=== PATIENT | female | born 1955 | race Caucasian/White ===

== ENCOUNTER 2018-03-23 12:16 | Emergency (ER) | payer BC ==
[2018-03-23 13:13] VITALS: BP 133/75
--- NOTE | 2018-03-23 13:19 | EDM.PDOC ---
ED HPI GENERAL MEDICAL PROBLEM - General Chief Complaint: ENT Problem Stated Complaint: [id number] EAR INFECTION Time Seen by Provider: 03/23/18 13:13 Source of Information: Reports: Patient, RN, RN Notes Reviewed History Limitations: Reports: No Limitations - History of Present Illness INITIAL COMMENTS - FREE TEXT/NARRATIVE: Pt c/o Rt ear pain x1 day. She reports Hx of cold and sinus Sx's x1 week. Denies fever or chills. 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: Other Medication(s) - Related Data Allergies Allergy/AdvReac Type Severity Reaction Status Date / Time succinylcholine Allergy Respiratory Verified 09/14/15 06:41 Depression Home Meds: Home Meds Aspirin [Halfprin] 1 tab PO DAILY 09/08/15 [History] Calcium Carb & Citrate/Vit D3 [Citracal + D ER] 1 tab PO DAILY 09/08/15 [History ] Multivitamin [Multi-Day Vitamins] 1 tab PO DAILY 09/08/15 [History] Mv-Mn/FA/Vit K/Lycop/Lut/Zeaxa [Ocuvite Eye + Multi Tablet] 1 tab PO DAILY 09/08 [History] Omeprazole 1 cap PO DAILY 09/08/15 [History] Sertraline [Zoloft] 1 tab PO DAILY 09/08/15 [History] Simvastatin 1 tab PO DAILY 09/08/15 [History] Past Medical History HEENT History: Reports: Impaired Vision, Other (See Below) Other HEENT History: R RETINAL HEMORRHAGE; WEARS CORRECTIVE LENSES Cardiovascular History: Reports: High Cholesterol Other Cardiovascular History: HYPERLIPIDEMIA Respiratory History: Reports: None Gastrointestinal History: Reports: GERD Genitourinary History: Reports: Other (See Below) Other Genitourinary History: OVERACTIVE BLADDER; CYSTOCELE; FIBROCYSTIC BREAST DISEASE STATISTICIAN History: Reports: Musculoskeletal History: Reports: Fracture, Osteoarthritis Other Musculoskeletal History: FRACTURE R ANKLE Neurological History: Reports: None Psychiatric History: Reports: None Endocrine/Metabolic History: Reports: Obesity/BMI 30+ Hematologic History: Reports: Anesthesia Reaction, Iron Deficiency Other Hematologic History: ADVERSE REACTION TO SUCCINYLCHOLINE - WAS UNABLE TO BEGIN BREATHING ON HER OWN Immunologic History: Reports: None Oncologic (Cancer) History: Reports: None Dermatologic History: Reports: None - Past Surgical History HEENT Surgical History: Reports: Other (See Below) Female Surgical History: Reports: Breast Biopsy, D&C, Other (See Below) Neurological Surgical History: Reports: Lumbar Spine Musculoskeletal Surgical History: Reports: Other (See Below) Social & Family History - Family History Family Medical History: Noncontributory - Living Situation & Occupation Living situation: Reports: with Family ED ROS ENT - Review of Systems Review Of Systems: ROS reveals no pertinent complaints other than HPI. ED EXAM, ENT - Physical Exam Exam: See Below Exam Limited By: No Limitations General Appearance: Alert, WD/WN, No Apparent Distress, Obese Ears: Normal External Exam, Normal Canal, TM Bulging (Rt), TM Dullness (B/L), TM Erythema. No: Auricular Erythema, Auricular Tenderness, Mastoid Swelling, Mastoid Tenderness, Canal Material, Canal Swelling, TM Perforation Nose: No Blood, Nasal Discharge (yellowish) Mouth/Throat: Normal Inspection, Normal Gums, Normal Lips, Normal Oropharynx, Normal Teeth Head: Atraumatic, Normocephalic Neck: Normal Inspection, Supple, Non-Tender, Full Range of Motion. No: Lymphadenopathy (L), Lymphadenopathy (R) Respiratory/Chest: No Respiratory Distress, Lungs Clear, Normal Breath Sounds, No Accessory Muscle Use, Chest Non-Tender Cardiovascular: Regular Rate, Rhythm Extremities: Normal Inspection Neurological: Alert, Oriented, Normal Cognition, Normal Gait, No Motor/Sensory Deficits Course - Vital Signs Last Recorded V/S: Last Vital Signs Temp 36.5 C 03/23/18 13:12 Pulse 81 03/23/18 13:12 Resp 16 03/23/18 13:12 BP 133/75 03/23/18 13:12 Pulse Ox 99 03/23/18 13:12 Departure - Departure Time of Disposition: 13:17 Disposition: Home, Self-Care 01 Condition: Good Clinical Impression: Acute rhinosinusitis Otitis media Qualifiers: Otitis media type: suppurative Chronicity: acute Laterality: right Recurrence: not specified as recurrent Spontaneous tympanic membrane rupture: without spontaneous rupture Qualified Code(s): H66.001 - Acute suppurative otitis media without spontaneous rupture of ear drum, right ear - Discharge Information Instructions: Otitis Media, Adult, Kihc-up-Yinu, Upper Respiratory Infection, Adult Additional Instructions: Rx: Augmentin 875mg Use an over the counter antihistamine decongestant combination medication (such as Claritin-D 24HR). Ask your pharmacist for it. Follow up in clinic if not improving in 3 to 5 days.
== END 2018-03-23 13:30 | disposition home or self-care (01) ==
LOC: DL.ED 12:16
DX: H66.001 Acute suppurative otitis media without spontaneous rupture of ear drum, right ear (principal); J01.90 Acute sinusitis, unspecified; E66.9 Obesity, unspecified; Z88.8 Allergy status to other drugs, medicaments and biological substances; Z79.82 Long term (current) use of aspirin; Z79.899 Other long term (current) drug therapy
CPT/HCPCS: 99282

== ENCOUNTER → 2020-08-26 | Day surgery (SDC) | payer BC ==
[~2020-08-26] MED LIST: Dextrose 5%-0.45% NaCl 1,000 ML IV SCH; Midazolam 1 MG/ML 2 ML SDV IV ONE; Midazolam 1 MG/ML 2 ML SDV ONE; fentaNYL 100 MCG/2 ML SDV IV ONE; fentaNYL 100 MCG/2 ML SDV ONE
[2020-08-26 12:01] VITALS: BP 108/54; PULSE 74
--- NOTE | 2020-08-26 12:10 | OR ---
DATE: 08/26/2020 PROCEDURES: Esophagogastroduodenoscopy and multiple pinch biopsies. INSTRUMENT USED: GIF-HQ190 Olympus video panendoscope. PREMEDICATIONS: No oral or topical anesthesia used. Fentanyl 100 mcg intravenous, Versed 2 mg intravenous, nasal O2 cannula. The procedure was done under pulse oximetry, BP recording, and medical attendant. INDICATION: The patient with unexplained iron-deficiency anemia. Esophagogastroduodenoscopy is performed for detection of any active erosive lesions, Kline esophagus and/or malignancy also under consideration, H pylori status to be determined, small bowel biopsies to be obtained for celiac disease if indicated, endoscopic hemostasis therapy if needed. PROCEDURE IN DETAIL: The scope was passed with ease. Adequate visualization of the esophagus was made from proximal to distal areas. No upper esophageal lesions identified. No distal esophageal stricture. No uphill or downhill esophageal varices. No Kinga-Amaro tear. No evidence of erosive esophagitis by [place] criteria. No esophageal polyp or tumor mass identified. Large sliding hiatal hernia was noted. No proximal gastric varices noted. Gastric fundus examination by retroflexion showed no malignant lesions. Numerous benign- appearing diminutive gastric fundus polyps were noted. No gastric ulcer, malignant mass, or vascular ectasia identified. Duodenal bulb showed no ulcer. Visualized second part of the duodenum was unremarkable. Multiple pinch biopsies, 4 in number, were taken from different areas of the second part of the duodenum and tissues were also obtained from the duodenal bulb at 9 and 12 o'clock positions and sent for any histopathologic evidence of celiac disease. Multiple pinch biopsies were also obtained from the gastric antrum and proximal body and sent for PyloriTek test for H pylori and histopathology. No bleeding was noted from any of the visualized areas at the completion of examination. Photographs were taken of the duodenal bulb, gastric antrum, fundus, and distal esophagus. IMPRESSION: Sliding hiatal hernia. The patient tolerated the procedure well. [facility] /[id number]
== END | disposition home or self-care (01) ==
LOC: DL.ENDO 06:55
PROVIDERS: ATTEND Internal Medicine Gastroenterology
DX: D50.9 Iron deficiency anemia, unspecified (principal); E66.09 Other obesity due to excess calories; K21.9 Gastro-esophageal reflux disease without esophagitis; E78.5 Hyperlipidemia, unspecified; N32.81 Overactive bladder; N81.10 Cystocele, unspecified; E84.9 Cystic fibrosis, unspecified; Z88.8 Allergy status to other drugs, medicaments and biological substances; Z79.899 Other long term (current) drug therapy; Z98.890 Other specified postprocedural states; Z79.82 Long term (current) use of aspirin; Z68.35 Body mass index [BMI] 35.0-35.9, adult
CPT/HCPCS: 43239; 87077; J2250; J3010; J7042